=== PATIENT | female | born 1970 | race Caucasian/White ===

== ENCOUNTER 2023-08-14 22:54 | Emergency (ER) | payer MEDICAID ==
[~2023-08-14] VITALS: Ht 162.6 cm; Wt 63.6 kg
[2023-08-14 23:14] VITALS: BP 165/88; TEMP 97.4
[2023-08-15] MEDS ORDERED: AMOXICILLIN 8751 TAB PO (00:19)
[2023-08-15] MEDS ORDERED: Home HYDROcodone/Acetaminophen 5/325 MG #4 TABS/PACK PO ONE (00:30)
[2023-08-15 01:19] VITALS: PULSE 78
== END 2023-08-15 01:20 | disposition home or self-care (01) ==
LOC: COL.ER 22:54
DX: K04.7 Periapical abscess without sinus (principal); F17.210 Nicotine dependence, cigarettes, uncomplicated; Z91.040 Latex allergy status

== ENCOUNTER 2024-05-18 18:30 | Observation (INO) | payer MEDICAID ==
[~2024-05-18] VITALS: Ht 152.4 cm; Wt 86.0 kg
[~2024-05-18 18:30] MED LIST: AMOXICILLIN 8751 TAB PO; ATARAX50 MG PO; BD ALCOHOL1 SWA MC; COZAAR 50MG50 MG/TAB PO; DEPAKOTE500 MG PO; FREESTYLE PREC1 EAC5 MC; GLUCAGON EMERGEN1 M1 SQ; GLUCOSE TEST ST1 DEV MC; HUMALOG PEN100 U/ML SQ; IMITREX 25MG TA25 MG PO; INSULIN LI100 UNIT/4 SQ; INSULIN PEN NE1 EAC1 MC; LAMICTAL 100MG100 MG PO; LANCETS MC; LANTUS SOLOS100 U/ML SQ; LANTUS100 U/ML SQ; LASIX 20MG TABL20 MG PO; LASIX 40MG TABL40 MG PO; LOPRESSOR 225 MG/TAB PO; NEURONTIN800 MG/TAB PO; NORCO 325 MG-51 TAB; PRINIVIL20 MG PO; PROAIR HFA0.09 MG/AC IH; SEROQUEL 1100 MG/TAB PO; SEROQUEL50 MG PO; ZESTRIL 20MG TA20 MG PO; ZYRTEC 10MG10 MG PO
[2024-05-18] MEDS ORDERED: Morphine 4 MG/ML VIAL IV ONE (20:15)
[2024-05-18 20:50] LABS: COLLECTION METHOD CLEAN CATCH
[2024-05-18 20:55] LABS: BASO % 0.6 % (0.0-2.0); EOS # 0.2 K/mm3 (0.0-0.7); EOS % 3.5 % (0.0-4.0); GRAN # 3.2 K/mm3 (1.4-6.5); GRAN % 60.4 % (42.2-75.2); HEMOGLOBIN 11.3 g/dl (12.5-16.0); LYMPH # 1.6 K/mm3 (1.2-3.4); LYMPH % 28.9 % (20.0-51.0); MEAN CELL VOLUME 81 fl (80.0-100.0); MEAN CORPUSCULAR HEMOGLOBIN 29 pg (27-31); MEAN CORPUSCULAR HGB CONC 35 g/dl (33.0-37.0); MEAN PLATELET VOLUME 9.5 fl (7.4-10.4); MONO # 0.3 K/mm3 (0.1-0.6); MONO % 6.2 % (1.7-9.3); PLATELET COUNT 155 K/mm3 (130-400); RED BLOOD COUNT 3.96 M/mm3 (4.10-5.30); REDCELL DISTRIBUTION WIDTH-CV 13.2 % (11.5-14.5)
[2024-05-18 21:11] LABS: INR 0.9 (0.8-3.0)
[2024-05-18 21:12] LABS: URINE APPEARANCE CLEAR (CLEAR/HAZY); URINE BLOOD TRACE (NEGATIVE); URINE COLOR YELLOW (YELLOW); URINE GLUCOSE 3+ (NEGATIVE); URINE KETONE NEGATIVE (NEGATIVE); URINE NITRATE NEGATIVE (NEGATIVE); URINE PROTEIN(semi-quant) 3+ (NEGATIVE); URINE UROBILINOGEN 0.2 E.U/dL (0.2-1.0)
[2024-05-18 21:16] LABS: HEMATOCRIT 32.2 % (37.0-47.0)
[2024-05-18 21:30] LABS: ALBUMIN 2.2 g/dL (3.5-5.0); BILIRUBIN,TOTAL 0.1 mg/dL (0.2-1.2); C-REACTIVE PROTEIN 0.34 mg/dL (0.00-0.50); CALCIUM 8.4 mg/dL (8.4-10.2); CREATININE, serum 1.68 mg/dL (0.57-1.11); POTASSIUM 4.7 mEq/L (3.5-4.5); TOTAL PROTEIN 5.3 g/dl (6.2-8.1)
[2024-05-18 21:38] LABS: TROPONIN-I 0.016 ng/mL (0.00-0.033)
[2024-05-18 22:20] LABS: TSH w REFLEX 1.295 uIU/mL (0.350-4.940)
[2024-05-18] MEDS ORDERED: Iodixanol-320 100 ML BOTTLE IV ONE (22:55)
[2024-05-18] MEDS ORDERED: NS 50 ML IV ONE (22:56)
[2024-05-18] MEDS ORDERED: diphenhydrAMINE 50 MG/ML 1 ML VIAL IV ONE (23:30)
[2024-05-18] MEDS ORDERED: hydrALAZINE 20 MG/ML 1 ML VIAL IV ONE (23:30)
[2024-05-18] MEDS ORDERED: Acetaminophen 325 MG TAB PO ONE (23:30)
[2024-05-18] MEDS ORDERED: LR 1,000 ML IV SCH (23:45)
[2024-05-18] MEDS ORDERED: Ondansetron 4 MG/2 ML VIAL IV PRN (23:45)
[2024-05-19] VITALS (8 sets, daily range): BP systolic 138–181; BP diastolic 80–91; PULSE 67–81; TEMP 97.8–98.2
--- NOTE | 2024-05-19 01:00 | NUR ---
Admitted to medical floor from ER with HTN urgency, H/A,, pt denies H/A at this time, states she is feeling better, Up to bathroom , steady on feet, B/P 181/ at this time-- tele on, Ruel MARCANO is in the process of writing orders- understands to call just for standby assist to bathroom tonight-
[2024-05-19] MEDS ORDERED: Insulin Lispro (HumaLOG) SQ SCH (02:19)
[2024-05-19] MEDS ORDERED: Dextrose 50% Water 25 GM/50 ML SYRINGE IV PRN (02:30)
[2024-05-19] MEDS ORDERED: Glucagon 1 MG VIAL IM PRN (02:30)
[2024-05-19] MEDS ORDERED: Dextrose (Glucose) 15 GM (4 x 3.75 GM) Chewable TABLET PACK PO PRN (02:30)
--- NOTE | 2024-05-19 02:30 | NUR ---
B/P down to 138/83, 149/83 after prn med given,, Blood sugar 229, will give sliding scale as ordered. Has been resting well.
--- NOTE | 2024-05-19 06:00 | NUR ---
States has a headache, no pain meds ordered, called Chris MARCANO- order obtained for Tylenol. Also states she feels like her blood sugar was getting low-- she already had some juice and when checked Blood sugar was 169. Has been resting failrly well, B/P stable.
[2024-05-19] MEDS ORDERED: Acetaminophen 325 MG TAB PO PRN (06:15)
[2024-05-19] MEDS ORDERED: Gabapentin 400 MG CAP PO SCH (09:00)
[2024-05-19] MEDS ORDERED: Losartan 50 MG TAB PO SCH (09:00)
[2024-05-19] MEDS ORDERED: Famotidine 20 MG TAB PO SCH (09:00)
--- NOTE | 2024-05-19 09:10 | NUR ---
Assessment completed. Pt contines to c/o headache. Dr. Worthington notified and doesn't want to continue Imitrex due to her HTN. Patient notified and verbalizes understanding. Ice pack provided. Patient rec'd Tylenol from ARIEL Brooks on previous shift.
[2024-05-19] MEDS ORDERED: COZAAR 50MG50 MG/TAB PO (09:50)
--- NOTE | 2024-05-19 10:22 | NUR ---
Initial visit attempt; Patient resting, Consulting Engineer left card offering Spiritual Care and God's blessings.
--- NOTE | 2024-05-19 10:47 | NUR ---
SW met with patient after rounding with Dr. Worthington to complete initial assessment for discharge planning. Patient states she lives in [place] with her son Ricky Mcgill ([phone]). She states she has returned to [place] from [place] in February. Patient is establishing with [facility] and states she doesn't have an appointment until late May. Patient will see Dr. Jennifer Sharma as her PCP. Patient uses [facility] and does not use any DME. Patient is covered by [employer]. RN notified that patient needs follow up appointment scheduled as soon as possible after discharge to allow patient to get her medications refilled. Patient's son will transport her home. Discharge plan: Home
--- NOTE | 2024-05-19 11:42 | NUR ---
Discharge instructions reviewed with patient- patient verbalizes understanding. INT d/c'd with cath tip intact. Tele d/c'd. When this nurse contacted [facility], the hr receptionist noted that the 06/18 appointment is for dental services and that the first available new patient appt wouldn't be until June. The patient's number was given to the [facility] hr receptionist and she will send a link to the patient to fill out new patient forms. Dr. Worthington informed and states the patient will have to follow up with her pcp in [place] for refills until care is established at [facility]. This nurse was on the phone with [facility] and the patient was eager to leave [facility] since her son was downstairs waiting for her. Left message on patient's voicemail to return phone call so she can be updated.
[2024-05-19] MEDS ORDERED: LR 1,000 ML IV SCH (11:45)
--- NOTE | 2024-05-19 11:49 | NUR ---
Discharge instructions reviewed with patient- patient verbalizes understanding. INT d/c'd with cath tip intact. Tele d/c'd. When this nurse contacted [facility], the human resources receptionist noted that the 06/18 appointment is for dental services and that the first available new patient appt wouldn't be until June. The patient's number was given to the [facility] human resources receptionist and she will send a link to the patient to fill out new patient forms. Dr. Worthington informed and states the patient will have to follow up with her pcp in [place] for refills until care is established at [facility]. This nurse was on the phone with [facility] and the patient was eager to leave [facility] since her son was downstairs waiting for her. Left message on patient's voicemail to return phone call so she can be updated. Pt escorted to private vehicle and discharged home with son.
[2024-05-19] MEDS ORDERED: QUEtiapine 100 MG TAB PO SCH (21:00)
[2024-05-19] MEDS ORDERED: lamoTRIgine 100 MG TAB PO SCH (21:00)
--- NOTE | 2024-05-20 11:50 | NUR ---
Patient returns phone call from yesterday 05/19. Pt instructed to follow up with her pcp at [place] for refills until she establishes care with [facility]. Pt reports she has already filled out the new patient paperwork and has an appointment already set up for medical services. Verbalizes understanding.
== END 2024-05-19 11:50 | disposition home or self-care (01) ==
LOC: COL.ER 18:30 → MEDICAL 23:52
PROVIDERS: Emergency Medicine; ADMIT Internal Medicine
DX: I10 Essential (primary) hypertension (principal); E11.9 Type 2 diabetes mellitus without complications; R42 Dizziness and giddiness; R51.9 Headache, unspecified; F31.9 Bipolar disorder, unspecified; Z79.899 Other long term (current) drug therapy; Z79.4 Long term (current) use of insulin
CPT/HCPCS: G0378; J0360; J0780; J1200; J1815; J1920; J2270; J7120; Q9967